=== PATIENT | male | born 1990 | race Caucasian/White ===

== ENCOUNTER 2022-08-26 22:22 | Inpatient (IN) | payer OTHER, SELFPAY ==
[2022-08-27] MEDS ORDERED: Propofol 1,000 MG/100 ML VIAL IV ONE (01:20)
[2022-08-27] MEDS: Midazolam HCl 2 mg/2 ml Vial SLOW IVP PRN ×2 (01:30→13:33)
[2022-08-27] MEDS ORDERED: Midazolam HCl 2 mg/2 ml Vial ONE (01:30)
[2022-08-27] MEDS ORDERED: Acetaminophen 650 MG Suppository PR PRN (01:33)
[2022-08-27] MEDS ORDERED: Ondansetron ODT 4 MG TAB PO PRN (01:33)
[2022-08-27] MEDS ORDERED: Ondansetron PF 4 MG/2 ML Vial IVP PRN (01:33)
[2022-08-27] MEDS ORDERED: Fentanyl CADD 100 ML IV SCH (01:45)
[2022-08-27] MEDS ORDERED: DISCONTINUE PREVIOUS NARCOTIC PAIN MEDICATIONS AND BENZODIAZEPINES FS SCH (01:45)
[2022-08-27] MEDS ORDERED: Fentanyl BOLUS 250 ML IVPB PRN (01:45)
[2022-08-27] MEDS ORDERED: Ventilator Sedation Protocol 1 EACH FS SCH (01:45)
[2022-08-27] MEDS ORDERED: Morphine 4 MG/ML VIAL SLOW IVP PRN (01:45)
[2022-08-27] MEDS ORDERED: Propofol BOLUS 1,000 MG/100 ML VIAL IV PRN (01:45)
[2022-08-27 02:03] LABS: Actual Bicarbonate (HCO3a) 26.8 mEq/L (22-28); Base Excess (BEa) 1.5 mEq/L (-2.0 to +3.0); CO2 Tension 45.3 mmHg (35.0-45.0); Calcium, Ionized (arterial) 1.16 mmol/L (1.12-1.30); Carboxyhemoglobin (COHb) 0.5 gm% (0.0-3.0); Hemoglobin (Hb) 11.9 g/dL (14.0-18.0); Potassium - ABG Lab 3.84 mmol/L (3.70-5.30); pH, Arterial 7.39 (7.35-7.45)
[2022-08-27 02:04] LABS: Puncture Site RRA
[2022-08-27 02:05] LABS: ALV-art Gradient 84.575 mmHg (0-20)
[2022-08-27 02:19] VITALS: BMI 29.2
[2022-08-27] MEDS: Propofol 1,000 MG/100 ML VIAL IV PRN ×4 (02:26→13:34)
[2022-08-27] MEDS ORDERED: Dextrose 50% Abboject 50 ML SYRINGE IVP PRN (06:15)
[2022-08-27] MEDS ORDERED: Dextrose 5% in Water 1,000 ML IV PRN (06:15)
[2022-08-27] MEDS ORDERED: Dextrose 50% Abboject 50 ML SYRINGE SLOW IVP SCH (06:15)
[2022-08-27 06:55] LABS: #Eosinphils 0.1 thou/uL (0.0-0.7); #Lymphocytes 1.9 thou/uL (1.20-3.40); #Monocytes 0.7 thou/uL (0.11-0.59); #Neutrophils 3.8 thou/uL (1.40-6.50); %Basophils 0.7 % (0.0-1.0); %Eosinophils 1.6 % (0.0-10.0); %Lymphocytes 28.9 % (21.0-51.0); %Monocytes 10.4 % (0.0-10.0); %Neutrophils 58.4 % (42.0-75.0); Hemoglobin 11.5 g/dL (14.0-18.0); Mean Corpuscular HGB CONC 31.8 g/dL (32.0-36.0); Mean Corpuscular Hemoglobin 28.5 pg (27.0-31.0); Mean Corpuscular Volume 89.5 fL (78.0-98.0); Mean Platelet Volume 7.8 fL (7.4-10.4); Platelet Count 210 thou/uL (130-400); RBC Distribution Width 13.3 % (11.5-14.5); Red Blood Cell (RBC) Count 4.05 mill/uL (4.70-6.10); White Blood Cell (WBC) Count 6.5 thou/uL (4.8-10.8)
[2022-08-27 07:16] LABS: Anion Gap 10 mmol/L (10-20); BUN (Urea Nitrogen) 7 mg/dL (8.9-20.6); Calc. Creatinine Clearance 170 mL/min (70-130); Calcium 8.6 mg/dL (7.8-10.44); Carbon Dioxide 29 mmol/L (22-29); Chloride 108 mmol/L (98-107); Estimated GFR 122; Glucose 84 mg/dL (70-105); Potassium 4.1 mmol/L (3.5-5.1); Sodium 143 mmol/L (136-145)
[2022-08-27] MEDS: Enoxaparin Sodium 40 MG/0.4 ML SYRINGE SC SCH (08:36)
[2022-08-27] MEDS ORDERED: Pantoprazole 40 MG VIAL IVP SCH (12:30)
[2022-08-27] MEDS: Lactated Ringer's 1,000 ML IV SCH (13:12)
[2022-08-27] MEDS: Pantoprazole 40 MG VIAL IVP SCH (13:16)
[2022-08-27] MEDS: Acetaminophen 325 MG TAB PO PRN ×2 (13:17→21:04)
[2022-08-27 15:04] LABS: Glucose POC Confirmation 94 mg/dl (70-105)
[2022-08-27] MEDS ORDERED: Fentanyl CADD 0 ML ONE (15:50)
[2022-08-27] MEDS ORDERED: Midazolam HCl 2 mg/2 ml Vial SLOW IVP PRN (18:06)
[2022-08-27] MEDS ORDERED: Haloperidol Lactate 5 MG/ML VIAL SLOW IVP SCH (18:15)
[2022-08-27 21:05] VITALS: BP 129/79
[2022-08-27] MEDS: Haloperidol Lactate 5 MG/ML VIAL SLOW IVP PRN (23:02)
[2022-08-28] MEDS ORDERED: Albumin 5% 500 ML ONE (00:19)
[2022-08-28] MEDS: Lactated Ringer's 1,000 ML IV SCH ×2 (03:16→16:17)
[2022-08-28] MEDS: Haloperidol Lactate 5 MG/ML VIAL SLOW IVP PRN ×2 (05:15→16:11)
[2022-08-28 08:08] LABS: #Lymphocytes 2.1 thou/uL (1.20-3.40); #Monocytes 0.9 thou/uL (0.11-0.59); #Neutrophils 4.9 thou/uL (1.40-6.50); %Basophils 0.2 % (0.0-1.0); %Eosinophils 0.3 % (0.0-10.0); %Monocytes 11.8 % (0.0-10.0); %Neutrophils 61.6 % (42.0-75.0); Hemoglobin 12.1 g/dL (14.0-18.0); Mean Corpuscular HGB CONC 32.3 g/dL (32.0-36.0); Mean Corpuscular Hemoglobin 27.9 pg (27.0-31.0); Mean Corpuscular Volume 86.6 fL (78.0-98.0); Mean Platelet Volume 7.9 fL (7.4-10.4); Platelet Count 224 thou/uL (130-400); RBC Distribution Width 12.8 % (11.5-14.5); Red Blood Cell (RBC) Count 4.35 mill/uL (4.70-6.10)
[2022-08-28 08:23] LABS: ALT (SGPT) 47 U/L (8-55); AST (SGOT) 25 U/L (5-34); Albumin 3.3 g/dL (3.5-5.0); Alkaline Phosphatase 107 U/L (40-110); Anion Gap 14 mmol/L (10-20); BUN (Urea Nitrogen) 9 mg/dL (8.9-20.6); Bilirubin, Total 0.8 mg/dL (0.2-1.2); CK (CPK) 61 U/L (30-200); Calc. Creatinine Clearance 163 mL/min (70-130); Calcium 8.8 mg/dL (7.8-10.44); Carbon Dioxide 29 mmol/L (22-29); Chloride 103 mmol/L (98-107); Estimated GFR 121; Globulin 2.9 g/dL (2.4-3.5); Glucose 109 mg/dL (70-105); Protein, Total 6.2 g/dL (6.0-8.3); Sodium 142 mmol/L (136-145)
[2022-08-28] MEDS: Enoxaparin Sodium 40 MG/0.4 ML SYRINGE SC SCH (10:50)
[2022-08-28] MEDS: Pantoprazole 40 MG VIAL IVP SCH (10:51)
[2022-08-28] MEDS ORDERED: Nicotine 21 MG PATCH TD SCH (17:00)
[2022-08-28 19:59] VITALS: TEMP 99
[2022-08-29] MEDS ORDERED: Nicotine 21 MG PATCH TD SCH (09:00)
[2022-08-30] MEDS ORDERED: FLU VACC QS2022-23(6MOS UP)/PF 60 MCG/0.5 ML SYRINGE IM ONE (09:00)
== END 2022-08-28 21:10 | disposition left against medical advice (07) | DRG 917 ==
LOC: CCU 22:22
PROVIDERS: ADMIT Student in an Organized Health Care Education/Training Program; ATTEND Internal Medicine
PROC: 5A1935Z Respiratory Ventilation, Less than 24 Consecutive Hours (ICD-10-PCS; principal; 2022-08-26)
DX: T42.4X1A Poisoning by benzodiazepines, accidental (unintentional), initial encounter (principal); G92.8 Other toxic encephalopathy; J96.01 Acute respiratory failure with hypoxia; T43.591A Poisoning by other antipsychotics and neuroleptics, accidental (unintentional), initial encounter; F19.10 Other psychoactive substance abuse, uncomplicated; Z53.29 Procedure and treatment not carried out because of patient's decision for other reasons; Z78.1 Physical restraint status
CPT/HCPCS: 36415; 36416; 36600; 71045; 80048; 80053; 82550; 82805; 85025; 94002; C9113; J1630; J1650; J2250; J2704; J3490; J7120